=== PATIENT | male | born 1945 | race Caucasian/White ===

== ENCOUNTER 2020-03-08 14:14 | Emergency (ER) | payer BC ==
[~2020-03-08] VITALS: Ht 180.3 cm; Wt 83.9 kg
[2020-03-08 14:30] VITALS: BP 184/69
--- NOTE | 2020-03-08 15:08 | NUR ---
WOUND CLEANING AND DRESSING DONE BY CUSTOMER SERVICE ENGINEER.
--- NOTE | 2020-03-08 15:56 | NUR ---
Patient discharged to home in stable condition. Written and verbal after care instructions given. Patient verbalizes understanding of instruction.
== END 2020-03-08 15:57 | disposition home or self-care (01) ==
LOC: ER 14:23
DX: S61.214A Laceration without foreign body of right ring finger without damage to nail, initial encounter (principal); I10 Essential (primary) hypertension; Z88.8 Allergy status to other drugs, medicaments and biological substances; X58.XXXA Exposure to other specified factors, initial encounter; Y93.89 Activity, other specified; Y92.89 Other specified places as the place of occurrence of the external cause; Y99.8 Other external cause status